=== PATIENT | female | born 1975 | race Two or more races ===

== ENCOUNTER 2019-02-07 13:43 | Emergency (ER) | payer MEDICAID ==
[~2019-02-07] VITALS: Ht 167.6 cm; Wt 73.5 kg
[2019-02-07 16:45] VITALS: BP 113/68
[2019-02-07] MEDS ORDERED: BACLOFEN 10 MG TAB PO ONE (17:30)
[2019-02-07] MEDS ORDERED: HYDROcodone-ACET 10/325MG TAB PO ONE (17:30)
== END 2019-02-07 17:54 | disposition home or self-care (01) ==
LOC: ER 13:43
DX: M54.2 Cervicalgia (principal); M62.838 Other muscle spasm; R51 Headache; V43.52XA Car driver injured in collision with other type car in traffic accident, initial encounter; Y93.I9 Activity, other involving external motion; Y92.488 Other paved roadways as the place of occurrence of the external cause; Y99.8 Other external cause status
CPT/HCPCS: 70450; 72125